=== PATIENT | male | born 1990 | race African-American/Black ===

== ENCOUNTER 2019-05-08 09:40 | Emergency (ER) | payer OTHER ==
[2019-05-08 09:47] VITALS: BP 128/86; PULSE 82; TEMP 98; BMI 25.8
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
[2019-05-08] MEDS ORDERED: KETOROLAC TROMETHAMINE 30 MG/1 ML VIAL IM ONE (11:38)
[2019-05-08] MEDS ORDERED: KETOROLAC TROMETHAMINE 30 MG/1 ML VIAL ONE (11:40)
== END 2019-05-08 10:57 | disposition home or self-care (01) ==
LOC: JERFT 09:40
PROC: 3E0233Z Introduction of Anti-inflammatory into Muscle, Percutaneous Approach (ICD-10-PCS; principal; 2019-05-08)
DX: S19.9XXA Unspecified injury of neck, initial encounter (principal); M54.2 Cervicalgia; V43.62XA Car passenger injured in collision with other type car in traffic accident, initial encounter; Y93.9 Activity, unspecified; Y92.410 Unspecified street and highway as the place of occurrence of the external cause
CPT/HCPCS: 99282-25